=== PATIENT | male | born 1970 | race African-American/Black ===

== ENCOUNTER 2017-01-21 19:39 | Emergency (ER) | payer OTHER ==
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
--- NOTE | ~2017-01-21 | EKG ---
PATIENT: BRUCE SHARMA UNIT #: [id number] Ventricular Rate: 83 BPM Atrial Rate: 83 BPM P-R Interval: 156 ms QRS Duration: 92 ms Q-T Interval: 384 ms QTC Calculation(Bezet): 451 ms P [place]: 50 degrees Calculated R [place]: -9 degrees Calculated T [place]: 24 degrees Diagnosis Line: Normal sinus rhythm Diagnosis Line: Incomplete right bundle branch block Diagnosis Line: Borderline ECG Diagnosis Line: No previous ECGs available Diagnosis Line: Confirmed by MARQUITA ZAVALA MD ([id number]) on Diagnosis Line: 01/23/2017 3:45:38 PM INTERPRETING MD: CRISTINA
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
== END 2017-01-21 23:45 | disposition home or self-care (01) ==
LOC: CED 19:39
DX: S13.4XXA Sprain of ligaments of cervical spine, initial encounter (principal); S23.3XXA Sprain of ligaments of thoracic spine, initial encounter; S39.012A Strain of muscle, fascia and tendon of lower back, initial encounter; S80.00XA Contusion of unspecified knee, initial encounter; I10 Essential (primary) hypertension; V49.9XXA Car occupant (driver) (passenger) injured in unspecified traffic accident, initial encounter; Y92.410 Unspecified street and highway as the place of occurrence of the external cause
CPT/HCPCS: 72040; 93005; 99284